=== PATIENT | female | born 1975 | race Hispanic/Latino ===

== ENCOUNTER 2019-03-21 12:04 | Emergency (ER) | payer OTHER ==
[~2019-03-21] VITALS: Ht 152.4 cm; Wt 81.6 kg
[2019-03-21] MEDS ORDERED: DEXAMETHASONE SOD PHOS 10 MG/1 ML VIAL IM ONE (12:30)
[2019-03-21] MEDS ORDERED: DEXAMETHASONE SOD PHOS 10 MG/1 ML VIAL ONE (12:58)
--- NOTE | 2019-03-21 13:43 | Diagnostic Imaging Report ---
Left hip, 2 views. History: Leg pain. Findings: The soft tissues are normal. Bone mineralization is normal. There is no evidence of fracture or dislocation. There are no lytic or sclerotic lesions. The hip joint is within normal limits. IMPRESSION: Normal left hip. Signed by: Frank Leblanc on 03/21/2019 1:40 PM
--- NOTE | 2019-03-21 13:47 | Diagnostic Imaging Report ---
Lumbar spine series, 5 views. History: Leg pain. Comparison: None available. Discussion: The paraspinal soft tissues are unremarkable. The alignment of the lumbar spine is normal. There is no evidence of fracture, spondylolisthesis, or spondylolysis. The intervertebral disc spaces are within normal limits. IMPRESSION: Normal lumbar spine. Signed by: Frank Leblanc on 03/21/2019 1:43 PM
[2019-03-21] MEDS ORDERED: NAPROSYN500 MG PO (14:04)
[2019-03-21] MEDS ORDERED: PREDNISONE20 MG PO (14:05)
[2019-03-21] MEDS ORDERED: CYCLOBENZAPRINE5 MG PO (14:06)
[2019-03-21 14:10] VITALS: BP 157/78
--- OUTSIDE RECORDS SUMMARY | 2019-03-23 13:56 | XMS REPORT ---
Author Author [facility] Address Unknown Phone Unavailable Care Team Providers Care Radiology Therapist Name Role Phone TYLER FRAUSTO Unavailable Unavailable Problems This patient has no known problems. Allergies, Adverse Reactions, Alerts This patient has no known allergies or adverse reactions. Medications This patient has no known medications. Results Test Description Test Time Test Comments Text Results Atomic Results Result Comments L SPINE 4 OR MORE VIEWS - HOPD 2019-03-21 13:43:00 [place] [address] Patient Name: LC MATA MR #: [id number] : 1975 Age/Sex: 43/F Req #: [id number] Adm Physician: Ordered by: TYLER FRAUSTO MD Report #: [id number] Location: [facility] Room/Bed: Procedure: [id number] HOPD/L SPINE 4 OR MORE VIEWS - [facility] Exam Date: Exam Time: REPORT STATUS: Signed Lumbar spine series, 5 views. History: Leg pain. Comparison: None available. Discussion: The paraspinal soft tissues are unremarkable. The alignment of the lumbar spine is normal. There is no evidence of fracture, spondylolisthesis, or spondylolysis. The intervertebral disc spaces are within normal limits. IMPRESSION: Normal lumbar spine. Signed by: Zack Leblanc on 03/21/2019 1:43 PM Dictated By: ZACK LEBLANC MD 134 Transcribed By: ASPEN on 03/21/19 134 COPY TO: TYLER FRAUSTO MD HIP 2 VIEW LT - HOPD 2019-03-21 13:39:00 [place] [address] Patient Name: LC MATA MR #: [id number] : 1975 Age/Sex: 43/F Req #: [id number] Adm Physician: Ordered by: TYLER FRAUSTO MD Report #: [id number] Location: [facility] Room/Bed: Procedure: [id number] HOPD/HIP 2 VIEW LT - HOPD Exam Date: Exam Time: REPORT STATUS: Signed Left hip, 2 views. History: Leg pain. Findings: The soft tissues are normal. Bone mineralization is normal. There is no evidence of fracture or dislocation. There are no lytic or sclerotic lesions. The hip joint is within normal limits. IMPRESSION: Normal left hip. Signed by: Zack Leblanc on 03/21/2019 1:40 PM Dictated By: ZACK LEBLANC MD 39 Transcribed By: ASPEN on 03/21/19 134 COPY TO: TYLER FRAUSTO MD
== END 2019-03-21 14:17 | disposition home or self-care (01) ==
LOC: FSED 12:04
DX: M25.552 Pain in left hip (principal); M54.16 Radiculopathy, lumbar region
CPT/HCPCS: 72110; 73502; 81025; 99283; J1100